=== PATIENT | female | born 1960 | race Caucasian/White ===

== ENCOUNTER 2020-02-27 21:10 | Inpatient (IN) | payer OTHER ==
[~2020-02-27] VITALS: Ht 170.2 cm; Wt 71.2 kg
[~2020-02-27 21:10] MED LIST: ASPI-496 PO; CA C1TAB64 PO; CHOL5000 PO; CYAN3000 PO; LISI-170 PO
[2020-02-27] MEDS ORDERED: ONDANSETRON 2MG/ML, 2ML ONE (21:47)
[2020-02-27 21:57] LABS: BASOPHILS # (AUTO) 0.09 x10^3/uL (0-0.1); BASOPHILS % (AUTO) 1 % (0-1); EOSINOPHILS # (AUTO) 0.18 x10^3/uL (0-0.4); EOSINOPHILS % (AUTO) 1 % (1-7); LYMPHOCYTES # (AUTO) 3.59 x10^3/uL (1-3.4); LYMPHOCYTES % (AUTO) 27 % (22-44); MD NO; MEAN CORPUSCULAR HEMOGLOBIN 26.7 pg (27.0-34.8); MEAN CORPUSCULAR HGB CONC 32.6 g/dL (32.4-35.8); MEAN CORPUSCULAR VOLUME 82.1 fL (80-100); MEAN PLATELET VOLUME 8.1 fL (7.4-10.4); MONOCYTES # (AUTO) 0.87 x10^3/uL (0.2-0.8); MONOCYTES % (AUTO) 7 % (2-9); NEUTROPHILS # (AUTO) 8.57 x10^3/uL (1.8-6.8); NEUTROPHILS % (AUTO) 65 % (42-75); PLATELET COUNT 395 x10^3/uL (130-400); RED CELL DISTRIBUTION WIDTH 15.3 % (9.6-15.2)
--- NOTE | 2020-02-27 21:58 | NUR ---
MONITORS APPLIED, SIDERAIL SUP X2, IV SITE STARTED, LABS DRAW AND SENT, IV FLUIDS INFUSING, PT MEDICATED PER JAN, CALL LIGHT WITHIN REACH
[2020-02-27] MEDS ORDERED: ONDANSETRON 2MG/ML, 2ML IVPush ONE (22:00)
[2020-02-27] MEDS ORDERED: SODIUM CHLORIDE 0.9% 1,000ML IVBOLUS ONE (22:00)
[2020-02-27 22:03] LABS: ALANINE AMINOTRANSFERASE 23 U/L (12-78); ALBUMIN 3.6 g/dL (3.4-5.0); ANION GAP 10 mmol/L (5-15); CALCIUM 10.6 mg/dL (8.5-10.1); CHLORIDE 102 mmol/L (98-107); CREATININE 0.91 mg/dL (0.55-1.02)
[2020-02-27] MEDS ORDERED: ONDA4TAB7 PO (22:04)
[2020-02-27] MEDS ORDERED: CIPR500T3 PO (22:04)
[2020-02-27 22:08] LABS: ALKALINE PHOSPHATASE 202 U/L (45-117); BILIRUBIN,TOTAL 0.5 mg/dL (0.2-1.0); TOTAL PROTEIN 8.7 g/dL (6.4-8.2); TROPONIN I < 0.015 ng/mL (0.000-0.045)
[2020-02-27] MEDS ORDERED: MORPHINE SULFATE 4 MG/ML, 1ML ONE (22:43)
--- NOTE | 2020-02-27 22:48 | NUR ---
PT C/O ABD PAIN, ERP UPDATED, ORDER RECEIVED AND PT MEDICATED PER MAR
[2020-02-27] MEDS ORDERED: MORPHINE SULFATE 4 MG/ML, 1ML IVPush PRN (23:00)
[2020-02-27] MEDS ORDERED: PROMETHAZINE 25 MG/ML, 1ML ONE (23:19)
--- NOTE | 2020-02-27 23:23 | NUR ---
PT MEDICATED PER MAR. PT TO CT
[2020-02-27] MEDS ORDERED: PROMETHAZINE 25 MG/ML, 1ML IM ONE (23:30)
[2020-02-27] MEDS ORDERED: OMNIPAQUE 350 MG/ML, 100ML BOTTLE ONE (23:36)
--- NOTE | 2020-02-28 00:13 | NUR ---
PT UP TO RR WITH STANDBY ASSIST
[2020-02-28] MEDS ORDERED: SODIUM CHLORIDE 0.9% 1,000ML IVBOLUS ONE (00:30)
--- NOTE | 2020-02-28 01:06 | NUR ---
BEAD MAKER: NO COVID TEST NEEDED PER DR. PRIEST(ADMITTING).
[2020-02-28 01:26] VITALS: BP 151/93
[2020-02-28] MEDS ORDERED: ACETAMINOPHEN 325 MG TABLET PO PRN (01:30)
[2020-02-28] MEDS: SODIUM CHLORIDE 0.9% 1,000 ML IV SCH ×2 (01:54→09:38)
[2020-02-28] MEDS: ONDANSETRON 2MG/ML, 2ML IVPush PRN ×3 (06:30→23:59)
[2020-02-28 07:50] VITALS: BP 152/91
[2020-02-28] MEDS: METOCLOPRAMIDE 5 MG/ML, 2ML IVPush PRN (11:44)
[2020-02-28] MEDS ORDERED: POTASSIUM CHLORIDE 40 MEQ in SODIUM CHLORIDE 0.9% 500 ML IV ONE (13:31)
[2020-02-28 15:47] VITALS: BP 133/84
[2020-02-28 17:00] VITALS: BP 146/79
[2020-02-28] MEDS: metFORMIN 500 MG TABLET PO SCH (17:11)
[2020-02-28 19:07] VITALS: BP 140/77
[2020-02-28] MEDS: FAMOTIDINE 20 MG/2 ML IVPush SCH (20:09)
[2020-02-29 00:51] VITALS: BP 131/91
[2020-02-29] MEDS ORDERED: SODIUM CHLORIDE 0.9% 1,000 ML IV SCH (01:15)
[2020-02-29 05:38] LABS: BASOPHILS # (AUTO) 0.04 x10^3/uL (0-0.1); BASOPHILS % (AUTO) 1 % (0-1); EOSINOPHILS # (AUTO) 0.15 x10^3/uL (0-0.4); EOSINOPHILS % (AUTO) 2 % (1-7); LYMPHOCYTES # (AUTO) 3.22 x10^3/uL (1-3.4); LYMPHOCYTES % (AUTO) 35 % (22-44); MD NO; MEAN CORPUSCULAR HEMOGLOBIN 27.2 pg (27.0-34.8); MEAN CORPUSCULAR HGB CONC 32.8 g/dL (32.4-35.8); MEAN CORPUSCULAR VOLUME 82.9 fL (80-100); MEAN PLATELET VOLUME 7.9 fL (7.4-10.4); MONOCYTES # (AUTO) 0.68 x10^3/uL (0.2-0.8); MONOCYTES % (AUTO) 7 % (2-9); NEUTROPHILS # (AUTO) 5.18 x10^3/uL (1.8-6.8); NEUTROPHILS % (AUTO) 56 % (42-75); PLATELET COUNT 305 x10^3/uL (130-400); RED BLOOD COUNT 5.45 x10^6/uL (3.82-5.3); RED CELL DISTRIBUTION WIDTH 15.5 % (9.6-15.2)
[2020-02-29 05:49] LABS: ANION GAP 8 mmol/L (5-15); CALCIUM 8.9 mg/dL (8.5-10.1); CHLORIDE 108 mmol/L (98-107)
[2020-02-29] MEDS: ONDANSETRON 2MG/ML, 2ML IVPush PRN ×2 (06:52→16:20)
[2020-02-29] MEDS: INSULIN LISPRO 100 UNITS/ML, PEN SQ-INSULIN SCH ×4 (07:00→20:41)
[2020-02-29] MEDS ORDERED: POTASSIUM CHLORIDE 20 MEQ TAB.ER.PRT PO ONE ×2 (07:00→10:00)
[2020-02-29] MEDS: metFORMIN 500 MG TABLET PO SCH ×2 (09:02→16:20)
[2020-02-29] MEDS: FAMOTIDINE 20 MG/2 ML IVPush SCH (09:08)
[2020-02-29] MEDS: METOCLOPRAMIDE 5 MG/ML, 2ML IVPush PRN (09:47)
[2020-02-29] MEDS: PROMETHAZINE 25 MG/ML, 1ML IM PRN ×2 (09:47→17:41)
[2020-02-29 09:48] VITALS: BP 152/82
[2020-02-29 13:35] VITALS: BP 148/91
[2020-02-29] MEDS: LORazepam 2 MG/ML, 1ML IVPush PRN (18:36)
[2020-02-29] MEDS: FAMOTIDINE 20 MG TABLET PO SCH (20:48)
[2020-02-29 20:51] VITALS: BP 155/84
[2020-03-01 04:07] VITALS: BP 152/88
[2020-03-01] MEDS: ONDANSETRON 2MG/ML, 2ML IVPush PRN ×3 (05:47→19:46)
[2020-03-01 06:39] VITALS: BP 146/83
[2020-03-01] MEDS: INSULIN LISPRO 100 UNITS/ML, PEN SQ-INSULIN SCH ×4 (07:00→21:00)
[2020-03-01] MEDS: metFORMIN 500 MG TABLET PO SCH ×2 (07:31→16:48)
[2020-03-01] MEDS: FAMOTIDINE 20 MG TABLET PO SCH ×2 (07:32→21:36)
[2020-03-01 09:09] LABS: ANION GAP 8 mmol/L (5-15); CALCIUM 9.2 mg/dL (8.5-10.1); CHLORIDE 106 mmol/L (98-107); CREATININE 0.71 mg/dL (0.55-1.02)
[2020-03-01] MEDS: LORazepam 2 MG/ML, 1ML IVPush PRN ×2 (10:54→16:48)
[2020-03-01 12:36] VITALS: BP 160/91
[2020-03-01 18:59] VITALS: BP 149/83
[2020-03-01] MEDS: METOCLOPRAMIDE 5 MG/ML, 2ML IVPush SCH (21:36)
[2020-03-02] MEDS: LORazepam 2 MG/ML, 1ML IVPush PRN ×2 (00:05→14:04)
[2020-03-02 00:35] VITALS: BP 143/87
[2020-03-02 05:36] LABS: ANION GAP 9 mmol/L (5-15); CALCIUM 9.5 mg/dL (8.5-10.1); CHLORIDE 106 mmol/L (98-107); CREATININE 0.62 mg/dL (0.55-1.02)
[2020-03-02] MEDS: METOCLOPRAMIDE 5 MG/ML, 2ML IVPush SCH ×4 (06:34→22:01)
[2020-03-02 07:14] VITALS: BP 127/80
[2020-03-02] MEDS: INSULIN LISPRO 100 UNITS/ML, PEN SQ-INSULIN SCH ×4 (07:23→21:00)
[2020-03-02] MEDS ORDERED: POTASSIUM CHLORIDE 40 MEQ in SODIUM CHLORIDE 0.9% 500 ML IV ONE (07:30)
[2020-03-02] MEDS: FAMOTIDINE 20 MG TABLET PO SCH ×2 (09:25→22:01)
[2020-03-02] MEDS: metFORMIN 500 MG TABLET PO SCH ×2 (09:25→18:07)
[2020-03-02 13:45] VITALS: BP 125/71
[2020-03-02 14:43] LABS: ANION GAP 7 mmol/L (5-15); CALCIUM 9.1 mg/dL (8.5-10.1); CHLORIDE 109 mmol/L (98-107)
[2020-03-02] MEDS: ONDANSETRON 2MG/ML, 2ML IVPush PRN ×2 (16:28→22:01)
[2020-03-02] MEDS ORDERED: POTASSIUM CHLORIDE 20 MEQ TAB.ER.PRT PO SCH (17:00)
[2020-03-02 19:26] VITALS: BP 109/67
[2020-03-03 00:33] VITALS: BP 127/72
[2020-03-03 05:06] LABS: CALCIUM 9.2 mg/dL (8.5-10.1); CHLORIDE 109 mmol/L (98-107)
[2020-03-03 05:12] LABS: ALANINE AMINOTRANSFERASE 35 U/L (12-78); ALBUMIN 3.1 g/dL (3.4-5.0); ALKALINE PHOSPHATASE 166 U/L (45-117); ANION GAP 8 mmol/L (5-15); BILIRUBIN,TOTAL 0.6 mg/dL (0.2-1.0); TOTAL PROTEIN 7.5 g/dL (6.4-8.2)
[2020-03-03] MEDS: INSULIN LISPRO 100 UNITS/ML, PEN SQ-INSULIN SCH ×3 (07:00→15:59)
[2020-03-03 07:19] VITALS: BP 121/75
[2020-03-03] MEDS: METOCLOPRAMIDE 5 MG/ML, 2ML IVPush SCH (08:06)
[2020-03-03] MEDS: FAMOTIDINE 20 MG TABLET PO SCH (08:06)
[2020-03-03] MEDS: metFORMIN 500 MG TABLET PO SCH ×2 (08:07→15:59)
[2020-03-03] MEDS ORDERED: POTASSIUM CHLORIDE 20 MEQ TAB.ER.PRT PO SCH (08:30)
[2020-03-03] MEDS: METOCLOPRAMIDE 10MG TABLET PO SCH ×2 (11:14→15:59)
[2020-03-03] MEDS ORDERED: CHLORHEXIDINE 15 ML UDC ONE (12:29)
[2020-03-03] MEDS ORDERED: PHENYLEPHRINE 10 MG/ML ONE (12:57)
[2020-03-03] MEDS ORDERED: FENTANYL PF 100 MCG/2ML ONE (12:57)
[2020-03-03] MEDS ORDERED: PROMETHAZINE 25 MG/ML, 1ML IV PRN (13:00)
[2020-03-03] MEDS ORDERED: HYDROmorphone 2 MG/ML, 1ML IVPush PRN (13:00)
[2020-03-03] MEDS ORDERED: FENTANYL PF 100 MCG/2ML IV PRN (13:00)
[2020-03-03] MEDS ORDERED: MIDAZOLAM 1 MG/ML, 2ML IV PRN (13:00)
[2020-03-03] MEDS ORDERED: LABETALOL 5MG/ML, 20ML IV PRN (13:00)
[2020-03-03] MEDS ORDERED: ALBUTEROL SULFATE 2.5 MG/3 ML NPPB PRN (13:00)
[2020-03-03] MEDS ORDERED: hydrALAzine 20 MG/ML, 1ML IV PRN (13:00)
[2020-03-03] MEDS ORDERED: DEXAMETHASONE 4 MG/ML, 1ML ONE (13:25)
[2020-03-03] MEDS ORDERED: PROPOFOL 10 MG/ML, 20ML ONE (13:25)
[2020-03-03] MEDS ORDERED: ONDANSETRON 2MG/ML, 2ML ONE (13:25)
[2020-03-03] MEDS ORDERED: CEFAZOLIN 1,000 MG ONE (13:25)
[2020-03-03] MEDS ORDERED: ROCURONIUM 10MG/ML,5ML ONE (13:25)
[2020-03-03] MEDS ORDERED: SUCCINYLCHOLINE 20 MG/ML, 10ML ONE (13:25)
[2020-03-03] MEDS ORDERED: FAMO20TA7 PO (15:28)
[2020-03-03] MEDS ORDERED: METF500T PO (15:28)
[2020-03-03] MEDS ORDERED: METO10TA2 PO (15:28)
[2020-03-03] MEDS ORDERED: POTA20TA6 PO (15:28)
[2020-03-03] MEDS ORDERED: GLYB2.5T2 PO (15:28)
== END 2020-03-03 17:40 | disposition home or self-care (01) | DRG 987 ==
LOC: ED 22:08 → EDIP 02-28 00:42 → INTOOBSV 02-28 00:42 → 3N 02-28 01:23 → 3E 02-28 16:46 → OBSVTOIN 02-29 11:50 → 3N 02-29 18:15
PROVIDERS: ADMIT Family Medicine; ATTEND Internal Medicine
PROC: 0BBJ8ZX Excision of Left Lower Lung Lobe, Via Natural or Artificial Opening Endoscopic, Diagnostic (ICD-10-PCS; principal; 2020-03-03 13:00)
DX: E11.43 Type 2 diabetes mellitus with diabetic autonomic (poly)neuropathy (principal); E43 Unspecified severe protein-calorie malnutrition; R91.8 Other nonspecific abnormal finding of lung field; E86.0 Dehydration; E87.6 Hypokalemia; F17.200 Nicotine dependence, unspecified, uncomplicated; R59.1 Generalized enlarged lymph nodes; D75.1 Secondary polycythemia; K31.84 Gastroparesis; E27.8 Other specified disorders of adrenal gland; D72.829 Elevated white blood cell count, unspecified; Z90.49 Acquired absence of other specified parts of digestive tract; Z72.89 Other problems related to lifestyle; Z88.0 Allergy status to penicillin; Z88.2 Allergy status to sulfonamides; Z88.1 Allergy status to other antibiotic agents; Z91.012 Allergy to eggs; I10 Essential (primary) hypertension; Z79.4 Long term (current) use of insulin; Z80.1 Family history of malignant neoplasm of trachea, bronchus and lung; Z82.49 Family history of ischemic heart disease and other diseases of the circulatory system; Z68.24 Body mass index [BMI] 24.0-24.9, adult
CPT/HCPCS: 36415; 96361; 96372; 96374; 99285; J3490; 31628; 31629; 71045; 71260; 74177; 78264; 80048; 80053; 82962; 83036; 83690; 83735; 84100; 84484; 85025; 88172; 88173; 88177; 88305; 93005; G0378; J0690; J1100; J2405; J2550; J2704; J3010; J3480; Q9967; A9541; J0330; J1815; J2060; J2270; J2370; J2765; J7030; J7040; U0001

== ENCOUNTER 2020-03-09 16:20 | Inpatient (IN) | payer OTHER ==
[~2020-03-09] VITALS: Ht 172.7 cm; Wt 76.0 kg
[~2020-03-09 16:20] MED LIST changes: +CIPR500T3 PO; +FAMO20TA7 PO; +GLYB2.5T2 PO; +METF500T PO; +METO10TA2 PO; +ONDA4TAB7 PO; +POTA20TA6 PO
[2020-03-09] MEDS ORDERED: DIPHENHYDRAMINE 50 MG/ML, 1ML ONE (16:54)
[2020-03-09] MEDS ORDERED: PROCHLORPERAZINE 5 MG/ML, 2ML ONE (16:54)
[2020-03-09 17:00] LABS: BASOPHILS # (AUTO) 0.06 x10^3/uL (0-0.1); BASOPHILS % (AUTO) 1 % (0-1); EOSINOPHILS # (AUTO) 0.12 x10^3/uL (0-0.4); EOSINOPHILS % (AUTO) 1 % (1-7); LYMPHOCYTES # (AUTO) 3.41 x10^3/uL (1-3.4); LYMPHOCYTES % (AUTO) 35 % (22-44); MD NO; MEAN CORPUSCULAR HEMOGLOBIN 26.7 pg (27.0-34.8); MEAN CORPUSCULAR HGB CONC 32.7 g/dL (32.4-35.8); MEAN CORPUSCULAR VOLUME 81.9 fL (80-100); MEAN PLATELET VOLUME 8.3 fL (7.4-10.4); MONOCYTES # (AUTO) 0.92 x10^3/uL (0.2-0.8); MONOCYTES % (AUTO) 9 % (2-9); NEUTROPHILS # (AUTO) 5.36 x10^3/uL (1.8-6.8); NEUTROPHILS % (AUTO) 54 % (42-75); PLATELET COUNT 359 x10^3/uL (130-400); RED CELL DISTRIBUTION WIDTH 15.4 % (9.6-15.2)
[2020-03-09] MEDS ORDERED: DIPHENHYDRAMINE 50 MG/ML, 1ML IVPush ONE (17:00)
[2020-03-09] MEDS ORDERED: SODIUM CHLORIDE FLUSH 10ML SYR IVF ONE (17:00)
[2020-03-09] MEDS ORDERED: SODIUM CHLORIDE 0.9% 1,000ML IVBOLUS ONE (17:00)
[2020-03-09] MEDS ORDERED: PROCHLORPERAZINE 5 MG/ML, 2ML IVPush ONE (17:00)
--- NOTE | 2020-03-09 17:05 | NUR ---
ASSISTING PRIMARY. PT MEDICATED PER ERP ORDER, NS BOLUS INFUSING. PT WITH SOME RELIEF OF NAUSEA FOLLOWING MEDICATION. PULSE OX PLACED, SAT READING 86-90%. OXYGEN PLACED AT 2LITERS VIA NC. CALL LIGHT WITHIN REACH, FAMILY AT BS.
[2020-03-09 17:07] LABS: ALANINE AMINOTRANSFERASE 28 U/L (12-78); ALBUMIN 3.5 g/dL (3.4-5.0); ANION GAP 9 mmol/L (5-15); CALCIUM 9.5 mg/dL (8.5-10.1); CHLORIDE 106 mmol/L (98-107)
[2020-03-09 17:10] LABS: ALKALINE PHOSPHATASE 169 U/L (45-117); BILIRUBIN,TOTAL 0.6 mg/dL (0.2-1.0); CREATININE 0.75 mg/dL (0.55-1.02)
[2020-03-09] MEDS ORDERED: POTASSIUM CHLORIDE 40 MEQ in SODIUM CHLORIDE 0.9% 500 ML IV ONE (18:00)
[2020-03-09] MEDS ORDERED: PROM25SU35 PR (18:25)
[2020-03-09] MEDS ORDERED: morphine SULFATE 10 MG/ML, 1ML IVPush PRN (18:30)
[2020-03-09] MEDS ORDERED: PROMETHAZINE 25 MG/ML, 1ML IM PRN (18:30)
[2020-03-09] MEDS ORDERED: BISACODYL 10 MG SUPP PR PRN (18:30)
[2020-03-09] MEDS ORDERED: METOCLOPRAMIDE 5 MG/ML, 2ML IVPush PRN (18:30)
[2020-03-09] MEDS ORDERED: hydrALAzine 20 MG/ML, 1ML IVPush PRN (18:30)
[2020-03-09] MEDS ORDERED: DEXTROSE 4 GM TAB.CHEW PO PRN (18:30)
[2020-03-09] MEDS ORDERED: ACETAMINOPHEN 325 MG TABLET PO PRN (18:30)
[2020-03-09] MEDS ORDERED: POLYETHYLENE GLYCOL 17 GM PACKET PO PRN (18:30)
[2020-03-09] MEDS ORDERED: GLUCAGON 1 MG IM PRN (18:30)
[2020-03-09] MEDS ORDERED: DEXTROSE 50%, 50ML SYRINGE IVPush PRN (18:30)
--- NOTE | 2020-03-09 18:48 | NUR ---
REPORT FROM NARGIS CHEN. ASSUMING CARE OF PT
--- NOTE | 2020-03-09 19:30 | NUR ---
REPORT CALLED TO FLOOR RN ALL QUESTIONS ADDRESSED, PT READY FOR TRANSPORT
[2020-03-09 19:46] LABS: ACETONE, SERUM Trace (Negative)
[2020-03-09 19:56] VITALS: BP 146/82
[2020-03-09] MEDS: INSULIN LISPRO 100 UNITS/ML, PEN SQ-INSULIN SCH (21:00)
[2020-03-09] MEDS: NICOTINE 14MG/24 HR PATCH.TD24 TD SCH (21:00)
[2020-03-09] MEDS: NS + 20MEQ KCL 1,000 ML IV SCH ×2 (21:44→23:03)
[2020-03-09] MEDS: SODIUM CHLORIDE FLUSH 10ML SYR IVF SCH (21:44)
[2020-03-09] MEDS: FAMOTIDINE 20 MG/2 ML IVPush SCH (21:44)
[2020-03-09] MEDS: HEPARIN 5,000 UNITS/ML, 1ML SQ SCH (21:46)
[2020-03-09] MEDS: ONDANSETRON 2MG/ML, 2ML IVPush PRN (23:33)
[2020-03-09 23:56] LABS: MICROSCOPIC AUTO
[2020-03-10 00:02] LABS: CULTURE INDICATED? YES
[2020-03-10 00:06] VITALS: BP 117/69
[2020-03-10] MEDS: HEPARIN 5,000 UNITS/ML, 1ML SQ SCH ×3 (05:30→21:21)
[2020-03-10 06:49] LABS: BASOPHILS # (AUTO) 0.05 x10^3/uL (0-0.1); BASOPHILS % (AUTO) 1 % (0-1); EOSINOPHILS # (AUTO) 0.17 x10^3/uL (0-0.4); EOSINOPHILS % (AUTO) 2 % (1-7); LYMPHOCYTES % (AUTO) 34 % (22-44); MD NO; MEAN CORPUSCULAR HGB CONC 32.5 g/dL (32.4-35.8); MEAN CORPUSCULAR VOLUME 82.8 fL (80-100); MEAN PLATELET VOLUME 8.1 fL (7.4-10.4); MONOCYTES % (AUTO) 10 % (2-9); NEUTROPHILS # (AUTO) 4.42 x10^3/uL (1.8-6.8); NEUTROPHILS % (AUTO) 54 % (42-75); PLATELET COUNT 283 x10^3/uL (130-400); RED BLOOD COUNT 5.26 x10^6/uL (3.82-5.3); RED CELL DISTRIBUTION WIDTH 15.4 % (9.6-15.2)
[2020-03-10 06:58] LABS: ANION GAP 6 mmol/L (5-15); CALCIUM 8.6 mg/dL (8.5-10.1); CHLORIDE 115 mmol/L (98-107)
[2020-03-10 07:00] LABS: CREATININE 0.54 mg/dL (0.55-1.02)
[2020-03-10] MEDS: INSULIN LISPRO 100 UNITS/ML, PEN SQ-INSULIN SCH ×4 (07:00→21:00)
[2020-03-10 07:24] VITALS: BP 123/73
[2020-03-10] MEDS: SENNA/DOCUSATE TABLET PO SCH (09:28)
[2020-03-10] MEDS: ONDANSETRON 2MG/ML, 2ML IVPush PRN (09:28)
[2020-03-10] MEDS: FAMOTIDINE 20 MG/2 ML IVPush SCH ×2 (09:28→21:21)
[2020-03-10] MEDS: NS + 20MEQ KCL 1,000 ML IV SCH ×2 (09:29→19:29)
[2020-03-10] MEDS: SODIUM CHLORIDE FLUSH 10ML SYR IVF SCH ×2 (09:29→21:22)
[2020-03-10] MEDS ORDERED: METOCLOPRAMIDE 5 MG/ML, 2ML IVPush SCH (11:30)
[2020-03-10 12:04] VITALS: BP 131/80
[2020-03-10] MEDS: METOCLOPRAMIDE 5 MG/ML, 2ML IVPush SCH (19:30)
[2020-03-10 19:39] VITALS: BP 160/93
[2020-03-10] MEDS: NICOTINE 14MG/24 HR PATCH.TD24 TD SCH (21:00)
[2020-03-11 01:18] VITALS: BP 161/89
[2020-03-11] MEDS: METOCLOPRAMIDE 5 MG/ML, 2ML IVPush SCH ×2 (03:30→11:34)
[2020-03-11] MEDS: ONDANSETRON 2MG/ML, 2ML IVPush PRN ×2 (03:46→09:57)
[2020-03-11] MEDS: HEPARIN 5,000 UNITS/ML, 1ML SQ SCH ×3 (05:03→22:03)
[2020-03-11] MEDS: NS + 20MEQ KCL 1,000 ML IV SCH (05:03)
[2020-03-11 06:29] VITALS: BP 151/83
[2020-03-11] MEDS: INSULIN LISPRO 100 UNITS/ML, PEN SQ-INSULIN SCH ×4 (07:00→21:00)
[2020-03-11] MEDS: FAMOTIDINE 20 MG/2 ML IVPush SCH (09:09)
[2020-03-11] MEDS: SENNA/DOCUSATE TABLET PO SCH (09:09)
[2020-03-11] MEDS: SODIUM CHLORIDE FLUSH 10ML SYR IVF SCH ×2 (09:09→21:00)
[2020-03-11] MEDS: POLYETHYLENE GLYCOL 17 GM PACKET PO SCH (10:30)
[2020-03-11 12:22] VITALS: BP 156/79
[2020-03-11] MEDS ORDERED: ONDANSETRON 4 MG TABLET PO PRN (15:30)
[2020-03-11] MEDS: METOCLOPRAMIDE 10MG TABLET PO SCH ×2 (16:26→22:03)
[2020-03-11 20:00] VITALS: BP 132/80
[2020-03-11] MEDS: NICOTINE 14MG/24 HR PATCH.TD24 TD SCH (21:00)
[2020-03-12 02:19] VITALS: BP 147/82
[2020-03-12] MEDS: HEPARIN 5,000 UNITS/ML, 1ML SQ SCH ×2 (05:00→13:36)
[2020-03-12] MEDS: METOCLOPRAMIDE 10MG TABLET PO SCH ×4 (06:15→21:56)
[2020-03-12 07:45] VITALS: BP 149/89
[2020-03-12] MEDS: POLYETHYLENE GLYCOL 17 GM PACKET PO SCH (08:11)
[2020-03-12] MEDS: SODIUM CHLORIDE FLUSH 10ML SYR IVF SCH ×2 (08:16→19:41)
[2020-03-12] MEDS ORDERED: FAMOTIDINE 20 MG/2 ML IVPush SCH (09:00)
[2020-03-12] MEDS ORDERED: SENNA/DOCUSATE TABLET PO SCH (09:00)
[2020-03-12] MEDS ORDERED: GADOTERATE 7.5 MMOL/15 ML SYR ONE (09:57)
[2020-03-12] MEDS: INSULIN LISPRO 100 UNITS/ML, PEN SQ-INSULIN SCH ×4 (10:22→21:57)
[2020-03-12] MEDS ORDERED: SENN-193 PO (11:21)
[2020-03-12] MEDS ORDERED: METO10TA2 PO (11:21)
[2020-03-12] MEDS ORDERED: ONDA-89 PO (11:21)
[2020-03-12] MEDS ORDERED: FAMO-79 PO (11:21)
[2020-03-12] MEDS: DEXAMETHASONE 4 MG/ML, 1ML IVPush SCH ×2 (13:36→19:40)
[2020-03-12 16:45] VITALS: BP 132/81
[2020-03-12 19:05] VITALS: BP 138/79
[2020-03-12] MEDS: NICOTINE 14MG/24 HR PATCH.TD24 TD SCH (21:57)
[2020-03-13] MEDS ORDERED: FAMOTIDINE 20 MG TABLET PO SCH (09:00)
== END 2020-03-13 00:30 | disposition short-term general hospital (02) | DRG 73 ==
LOC: ED 16:49 → EDIP 17:52 → 3N 19:44 → 3WST 23:19
PROVIDERS: ADMIT Internal Medicine; ATTEND Hospitalist
DX: E11.43 Type 2 diabetes mellitus with diabetic autonomic (poly)neuropathy (principal); E43 Unspecified severe protein-calorie malnutrition; D25.9 Leiomyoma of uterus, unspecified; K31.84 Gastroparesis; Z71.6 Tobacco abuse counseling; E27.8 Other specified disorders of adrenal gland; E87.6 Hypokalemia; G93.9 Disorder of brain, unspecified; K57.30 Diverticulosis of large intestine without perforation or abscess without bleeding; K59.00 Constipation, unspecified; Z72.0 Tobacco use; Z79.4 Long term (current) use of insulin; Z80.1 Family history of malignant neoplasm of trachea, bronchus and lung; Z83.3 Family history of diabetes mellitus; Z85.118 Personal history of other malignant neoplasm of bronchus and lung; Z91.81 History of falling; Z88.8 Allergy status to other drugs, medicaments and biological substances; Z88.0 Allergy status to penicillin; Z91.012 Allergy to eggs; Z90.49 Acquired absence of other specified parts of digestive tract; Z68.25 Body mass index [BMI] 25.0-25.9, adult; Z88.2 Allergy status to sulfonamides
CPT/HCPCS: 36415; 74018; 96361; 96374; 99285; J3490; 70553; 80048; 80053; 81001; 82010; 82962; 83690; 83735; 85025; 87086; 93005; G0378; J1100; J1644; J2405; J3480; Q0162; A9575; J0780; J1200; J1815; J2765; J7030; J7040

== ENCOUNTER 2020-03-17 16:05 | Emergency (ER) | payer OTHER ==
[~2020-03-17] VITALS: Ht 172.7 cm; Wt 71.1 kg
[~2020-03-17 16:05] MED LIST changes: +FAMO-79 PO; +ONDA-89 PO; +PROM25SU35 PR; +SENN-193 PO
[2020-03-17] MEDS ORDERED: ONDANSETRON 2MG/ML, 2ML ONE (16:55)
--- NOTE | 2020-03-17 16:59 | NUR ---
PIV PLACED. LABS DRAWN. IVF RUNNING. XRAY COMPLETE. PT BACK FROM CT.
[2020-03-17] MEDS ORDERED: ONDANSETRON 2MG/ML, 2ML IVPush ONE (17:00)
[2020-03-17] MEDS ORDERED: SODIUM CHLORIDE 0.9% 1,000ML IVBOLUS ONE (17:00)
[2020-03-17] MEDS ORDERED: SODIUM CHLORIDE FLUSH 10ML SYR IVF ONE (17:00)
--- NOTE | 2020-03-17 17:03 | NUR ---
MEDS ADMIN PER JAN.
[2020-03-17 17:14] LABS: BASOPHILS # (AUTO) 0.01 x10^3/uL (0-0.1); BASOPHILS % (AUTO) 0 % (0-1); EOSINOPHILS # (AUTO) 0.06 x10^3/uL (0-0.4); EOSINOPHILS % (AUTO) 1 % (1-7); LYMPHOCYTES # (AUTO) 2.73 x10^3/uL (1-3.4); LYMPHOCYTES % (AUTO) 23 % (22-44); MD NO; MEAN CORPUSCULAR HEMOGLOBIN 26.9 pg (27.0-34.8); MEAN CORPUSCULAR HGB CONC 32.2 g/dL (32.4-35.8); MEAN CORPUSCULAR VOLUME 83.3 fL (80-100); MEAN PLATELET VOLUME 8.6 fL (7.4-10.4); MONOCYTES # (AUTO) 0.95 x10^3/uL (0.2-0.8); MONOCYTES % (AUTO) 8 % (2-9); NEUTROPHILS # (AUTO) 7.92 x10^3/uL (1.8-6.8); NEUTROPHILS % (AUTO) 68 % (42-75); PLATELET COUNT 324 x10^3/uL (130-400); RED BLOOD COUNT 5.93 x10^6/uL (3.82-5.3); RED CELL DISTRIBUTION WIDTH 15.8 % (9.6-15.2)
[2020-03-17 17:21] LABS: INTERNATIONAL NORMALIZED RATIO 0.99 (0.93-1.1); PROTHROMBIN TIME 10.5 Seconds (9.6-11.5)
[2020-03-17 17:24] LABS: ALANINE AMINOTRANSFERASE 55 U/L (12-78); ALBUMIN 3.3 g/dL (3.4-5.0); ANION GAP 8 mmol/L (5-15); CALCIUM 9.3 mg/dL (8.5-10.1); CHLORIDE 101 mmol/L (98-107); CREATININE 0.74 mg/dL (0.55-1.02)
[2020-03-17 17:28] LABS: ALKALINE PHOSPHATASE 167 U/L (45-117); BILIRUBIN,TOTAL 0.7 mg/dL (0.2-1.0); TOTAL PROTEIN 7.9 g/dL (6.4-8.2); TROPONIN I < 0.015 ng/mL (0.000-0.045)
[2020-03-17 17:52] LABS: MICROSCOPIC AUTO
[2020-03-17 17:53] LABS: CULTURE INDICATED? NO
--- NOTE | 2020-03-17 17:55 | NUR ---
ALL RESULTS ARE BACK AT THIS TIME. CHART UP FOR RECHECK.
[2020-03-17] MEDS ORDERED: PROMETHAZINE 25 MG/ML, 1ML IM ONE ×2 (18:00)
[2020-03-17] MEDS ORDERED: POTASSIUM CHLORIDE 20 MEQ TAB.ER.PRT PO ONE (18:00)
[2020-03-17] MEDS ORDERED: POTASSIUM CHLORIDE 20 MEQ TAB.ER.PRT ONE (18:10)
[2020-03-17] MEDS ORDERED: PROMETHAZINE 25 MG/ML, 1ML ONE (18:10)
[2020-03-17 18:58] VITALS: BP 153/78
--- NOTE | 2020-03-17 18:58 | NUR ---
PT TOLERATED PO POTASSIUM FOR ABOUT 20 MINUTES. PT STATES READY FOR DC.
== END 2020-03-17 19:10 | disposition home or self-care (01) ==
LOC: ED 17:04
DX: R11.2 Nausea with vomiting, unspecified (principal); R42 Dizziness and giddiness; E11.9 Type 2 diabetes mellitus without complications; E87.6 Hypokalemia; R94.31 Abnormal electrocardiogram [ECG] [EKG]; R10.9 Unspecified abdominal pain; Z90.89 Acquired absence of other organs; Z90.49 Acquired absence of other specified parts of digestive tract
CPT/HCPCS: 36415; 70450; 71045; 80053; 81001; 84484; 85025; 85610; 93005; 96361; 96372; 96374; 99285; J2405; J2550; J7030

== ENCOUNTER 2020-03-27 07:57 | Outpatient (CLI) | payer OTHER | END 2020-03-27 23:59 | disposition home or self-care (01) | LOC: ROC 07:57 | PROVIDERS: ATTEND Radiology Radiation Oncology | DX: C34.32 Malignant neoplasm of lower lobe, left bronchus or lung (principal); R42 Dizziness and giddiness; E87.6 Hypokalemia; E11.43 Type 2 diabetes mellitus with diabetic autonomic (poly)neuropathy; Z79.4 Long term (current) use of insulin; Z87.891 Personal history of nicotine dependence | CPT/HCPCS: 99214; G0463 ==

== ENCOUNTER → 2020-03-29 | Outpatient (CLI) | payer OTHER ==
[~2020-03-29] MED LIST changes: +GADOTERATE 10 MMOL/20 ML SYR ONE
== END | disposition home or self-care (01) ==
LOC: CFH 12:08
PROVIDERS: ATTEND Radiology Radiation Oncology
DX: C79.31 Secondary malignant neoplasm of brain (principal); C34.32 Malignant neoplasm of lower lobe, left bronchus or lung
CPT/HCPCS: 70553; A9575

== ENCOUNTER 2020-04-05 09:32 | Outpatient (CLI) | payer OTHER ==
[~2020-04-05 09:32] MED LIST changes: -GADOTERATE 10 MMOL/20 ML SYR ONE
== END 2020-04-05 23:59 | disposition home or self-care (01) ==
LOC: PETCFH 09:32
PROVIDERS: ATTEND Internal Medicine
DX: C34.32 Malignant neoplasm of lower lobe, left bronchus or lung (principal); R91.8 Other nonspecific abnormal finding of lung field
CPT/HCPCS: 78815; A9552

== ENCOUNTER 2020-04-19 07:30 | Outpatient (CLI) | payer OTHER | END 2020-04-19 23:59 | disposition home or self-care (01) | LOC: ROC 07:30 | PROVIDERS: ATTEND Radiology Radiation Oncology | DX: C34.32 Malignant neoplasm of lower lobe, left bronchus or lung (principal); C79.31 Secondary malignant neoplasm of brain; M19.90 Unspecified osteoarthritis, unspecified site; R42 Dizziness and giddiness; E11.43 Type 2 diabetes mellitus with diabetic autonomic (poly)neuropathy; Z79.82 Long term (current) use of aspirin; Z79.4 Long term (current) use of insulin; Z79.899 Other long term (current) drug therapy; Z98.890 Other specified postprocedural states; Z87.891 Personal history of nicotine dependence | CPT/HCPCS: 99213; G0463 ==

== ENCOUNTER 2020-04-26 14:27 | Day surgery (SDC) | payer OTHER ==
[~2020-04-26] VITALS: Ht 172.7 cm; Wt 73.6 kg
[2020-04-26] MEDS ORDERED: PROM25VI PO (14:58)
[2020-04-26] MEDS ORDERED: LACTATED RINGERS 1,000 ML IV SCH (15:04)
[2020-04-26 15:07] VITALS: BP 131/90
[2020-04-26 15:14] VITALS: BP 131/90
[2020-04-26] MEDS ORDERED: FAMO-79 PO (15:20)
[2020-04-26] MEDS ORDERED: ONDA8TAB9 PO (15:20)
[2020-04-26] MEDS ORDERED: [UNRECOGNIZED DRUG - OTHER] (15:28)
[2020-04-26] MEDS ORDERED: CHLORHEXIDINE 15 ML UDC MM ONE (15:30)
[2020-04-26] MEDS ORDERED: FENTANYL PF 100 MCG/2ML ONE (17:18)
[2020-04-26] MEDS ORDERED: MIDAZOLAM 1 MG/ML, 2ML ONE (17:19)
[2020-04-26] MEDS ORDERED: HEPARIN 1,000 UNITS/ML, 10ML ONE (17:20)
[2020-04-26] MEDS ORDERED: BUPIVACAINE/PF-EPI 0.5% 1:200K ONE (17:20)
[2020-04-26] MEDS ORDERED: SCOPOLAMINE 1MG PATCH TD STA (17:25)
[2020-04-26] MEDS ORDERED: SCOPOLAMINE 1MG PATCH TD ONE ×2 (17:26→18:00)
[2020-04-26] MEDS ORDERED: ONDANSETRON 2MG/ML, 2ML ONE (17:36)
[2020-04-26] MEDS ORDERED: PROPOFOL 10 MG/ML, 20ML ONE (17:36)
[2020-04-26] MEDS ORDERED: DEXAMETHASONE 4 MG/ML, 1ML ONE (17:36)
[2020-04-26] MEDS ORDERED: CLINDAMYCIN 150 MG/ML, 6ML ONE (17:49)
[2020-04-26] MEDS ORDERED: PROMETHAZINE 25 MG/ML, 1ML IVPush PRN (18:30)
[2020-04-26] MEDS ORDERED: OXYcodone 5 MG/5 ML ORAL.SOL UDC PO PRN (18:30)
[2020-04-26] MEDS ORDERED: FENTANYL PF 100 MCG/2ML IV PRN (18:30)
[2020-04-26] MEDS ORDERED: LABETALOL 5MG/ML, 20ML IV PRN (18:30)
[2020-04-26] MEDS ORDERED: HYDROmorphone 1 MG/ML, 1ML INJ IVPush PRN (18:30)
[2020-04-26] MEDS ORDERED: MEPERIDINE/PF 25MG/0.5ML IVPush PRN (18:30)
[2020-04-26] MEDS ORDERED: hydrALAzine 20 MG/ML, 1ML IV PRN (18:30)
[2020-04-26] MEDS ORDERED: ONDANSETRON 2MG/ML, 2ML IVPush PRN (18:30)
[2020-04-26] MEDS ORDERED: PROMETHAZINE 25 MG/ML, 1ML ONE (19:12)
== END 2020-04-26 20:25 | disposition home or self-care (01) ==
LOC: OR 14:27 → 3N 19:50 → OR 20:25
PROVIDERS: ATTEND Surgery
DX: C34.82 Malignant neoplasm of overlapping sites of left bronchus and lung (principal); Z11.59 Encounter for screening for other viral diseases; C79.31 Secondary malignant neoplasm of brain; E11.9 Type 2 diabetes mellitus without complications; M19.90 Unspecified osteoarthritis, unspecified site; Z79.82 Long term (current) use of aspirin; Z79.899 Other long term (current) drug therapy; Z87.891 Personal history of nicotine dependence; Z88.0 Allergy status to penicillin; Z88.2 Allergy status to sulfonamides; Z91.012 Allergy to eggs; Z88.8 Allergy status to other drugs, medicaments and biological substances; Z98.890 Other specified postprocedural states; Z80.9 Family history of malignant neoplasm, unspecified; Z82.49 Family history of ischemic heart disease and other diseases of the circulatory system
CPT/HCPCS: 36561; 71045; 77001; 87635; C1788; J1100; J1644; J2250; J2405; J2550; J2704; J3010; J7120; G0378

== ENCOUNTER 2020-06-19 09:34 | Outpatient (CLI) | payer OTHER ==
[~2020-06-19 09:34] MED LIST changes: +ONDA8TAB9 PO; +PROM25VI PO; +[UNRECOGNIZED DRUG - OTHER]
[2020-06-19] MEDS ORDERED: GADOTERATE 10 MMOL/20 ML SYR ONE (10:09)
== END 2020-06-19 23:59 | disposition home or self-care (01) ==
LOC: CFH 09:34 → RAD 23:59
PROVIDERS: ATTEND Radiology Radiation Oncology
DX: C79.31 Secondary malignant neoplasm of brain (principal)
CPT/HCPCS: 70553; A9575

== ENCOUNTER 2020-08-24 08:00 | Outpatient (CLI) | payer OTHER | END 2020-08-24 23:59 | disposition home or self-care (01) | LOC: ROC 08:00 | PROVIDERS: ATTEND Radiology Radiation Oncology | DX: C34.32 Malignant neoplasm of lower lobe, left bronchus or lung (principal) | CPT/HCPCS: G0463-95 ==

== ENCOUNTER → 2020-08-31 | Outpatient (CLI) | payer OTHER ==
[~2020-08-31] MED LIST changes: +OMNIPAQUE 350 MG/ML, 100ML BOTTLE ONE
== END | disposition home or self-care (01) ==
LOC: CFH 08:06
PROVIDERS: ATTEND Specialist
DX: C34.32 Malignant neoplasm of lower lobe, left bronchus or lung (principal); K76.0 Fatty (change of) liver, not elsewhere classified; I31.3 Pericardial effusion (noninflammatory); J90 Pleural effusion, not elsewhere classified; R91.8 Other nonspecific abnormal finding of lung field; R91.1 Solitary pulmonary nodule; Z90.49 Acquired absence of other specified parts of digestive tract
CPT/HCPCS: 71260; 74160; Q9967

== ENCOUNTER → 2020-10-11 | Outpatient (CLI) | payer OTHER ==
[~2020-10-11] MED LIST changes: -OMNIPAQUE 350 MG/ML, 100ML BOTTLE ONE
== END | disposition home or self-care (01) ==
LOC: ROC 08:16
PROVIDERS: ATTEND Radiology Radiation Oncology
DX: Z08 Encounter for follow-up examination after completed treatment for malignant neoplasm (principal); Z85.118 Personal history of other malignant neoplasm of bronchus and lung
CPT/HCPCS: 99213; G0463

== ENCOUNTER → 2020-10-18 | Outpatient (CLI) | payer OTHER ==
[~2020-10-18] MED LIST changes: +GADOTERATE 10 MMOL/20 ML SYR ONE
== END | disposition home or self-care (01) ==
LOC: CFH 11:55
PROVIDERS: ATTEND Radiology Radiation Oncology
DX: C79.31 Secondary malignant neoplasm of brain (principal); G93.89 Other specified disorders of brain
CPT/HCPCS: 70553; A9575

== ENCOUNTER → 2020-11-14 | Outpatient (CLI) | payer OTHER ==
[~2020-11-14] MED LIST changes: -GADOTERATE 10 MMOL/20 ML SYR ONE; +OMNIPAQUE 350 MG/ML, 100ML BOTTLE ONE
== END | disposition home or self-care (01) ==
LOC: CFH 09:43
PROVIDERS: ATTEND Specialist
DX: C34.32 Malignant neoplasm of lower lobe, left bronchus or lung (principal); J84.10 Pulmonary fibrosis, unspecified; R91.1 Solitary pulmonary nodule; R91.8 Other nonspecific abnormal finding of lung field; J90 Pleural effusion, not elsewhere classified; K76.0 Fatty (change of) liver, not elsewhere classified; N28.1 Cyst of kidney, acquired; E27.8 Other specified disorders of adrenal gland
CPT/HCPCS: 71260; 74160; Q9967

== ENCOUNTER 2020-12-05 06:05 | Day surgery (SDC) | payer OTHER ==
[~2020-12-05] VITALS: Ht 170.2 cm; Wt 83.5 kg
[~2020-12-05 06:05] MED LIST changes: -OMNIPAQUE 350 MG/ML, 100ML BOTTLE ONE; -[UNRECOGNIZED DRUG - OTHER]; +[UNRECOGNIZED DRUG - OTHER] PO
[2020-12-05] MEDS ORDERED: PROM25TA10 PO (07:20)
[2020-12-05] MEDS ORDERED: ATOR40TA78 PO (07:20)
[2020-12-05] MEDS ORDERED: ONDA8TAB16 SL (07:20)
[2020-12-05] MEDS ORDERED: FAMO-79 PO (07:20)
[2020-12-05] MEDS ORDERED: SCOP1PAT11 TD (07:20)
[2020-12-05 07:23] VITALS: BP 104/70
[2020-12-05] MEDS ORDERED: SODIUM CHLORIDE 0.9% 1,000 ML IV SCH (07:30)
[2020-12-05] MEDS ORDERED: FENTANYL PF 100 MCG/2ML ONE (08:06)
[2020-12-05] MEDS ORDERED: MIDAZOLAM 1 MG/ML, 5ML ONE ×2 (08:07)
[2020-12-05] MEDS ORDERED: FLUMAZENIL 0.1 MG/1 ML, 5ML ONE (08:07)
[2020-12-05] MEDS ORDERED: NALOXONE 1 MG/ML, 2ML ONE (08:07)
== END 2020-12-05 09:30 | disposition home or self-care (01) ==
LOC: OUT 06:05
PROVIDERS: ATTEND Specialist
DX: E27.8 Other specified disorders of adrenal gland (principal); C34.32 Malignant neoplasm of lower lobe, left bronchus or lung; C79.31 Secondary malignant neoplasm of brain; E11.9 Type 2 diabetes mellitus without complications; Z79.899 Other long term (current) drug therapy; Z87.891 Personal history of nicotine dependence; Z88.0 Allergy status to penicillin; Z88.2 Allergy status to sulfonamides; Z88.6 Allergy status to analgesic agent; Z91.012 Allergy to eggs; Z80.1 Family history of malignant neoplasm of trachea, bronchus and lung
CPT/HCPCS: 49180; 77012; 99156; 99157; J2250; J3010; J7030; J2310

== ENCOUNTER → 2021-01-10 | Outpatient (CLI) | payer OTHER ==
[~2021-01-10] MED LIST changes: +ATOR40TA78 PO; -CIPR500T3 PO; +CIPR500T4 PO; +GADOTERATE 10 MMOL/20 ML SYR ONE; +ONDA8TAB16 SL; +PROM25TA10 PO; +SCOP1PAT11 TD
== END | disposition home or self-care (01) ==
LOC: CFH 11:48
PROVIDERS: ATTEND Radiology Radiation Oncology
DX: C79.31 Secondary malignant neoplasm of brain (principal); J34.89 Other specified disorders of nose and nasal sinuses
CPT/HCPCS: 70553; A9575

== ENCOUNTER → 2021-01-17 | Outpatient (CLI) | payer OTHER ==
[~2021-01-17] MED LIST changes: -GADOTERATE 10 MMOL/20 ML SYR ONE
== END | disposition home or self-care (01) ==
LOC: ROC 07:18
PROVIDERS: ATTEND Radiology Radiation Oncology
DX: Z08 Encounter for follow-up examination after completed treatment for malignant neoplasm (principal); Z85.118 Personal history of other malignant neoplasm of bronchus and lung; Z85.841 Personal history of malignant neoplasm of brain; E11.9 Type 2 diabetes mellitus without complications; Z79.899 Other long term (current) drug therapy; Z87.891 Personal history of nicotine dependence
CPT/HCPCS: 99213; G0463

== ENCOUNTER → 2021-03-28 | Outpatient (CLI) | payer OTHER ==
[~2021-03-28] MED LIST changes: +GADOTERATE 10 MMOL/20ML SYR ONE
== END | disposition home or self-care (01) ==
LOC: CFH 10:53
PROVIDERS: ATTEND Radiology Radiation Oncology
DX: C79.31 Secondary malignant neoplasm of brain (principal); C34.90 Malignant neoplasm of unspecified part of unspecified bronchus or lung
CPT/HCPCS: 70553; A9575

== ENCOUNTER → 2021-04-04 | Outpatient (CLI) | payer OTHER ==
[~2021-04-04] MED LIST changes: -GADOTERATE 10 MMOL/20ML SYR ONE
== END | disposition home or self-care (01) ==
LOC: ROC 07:06
PROVIDERS: ATTEND Radiology Radiation Oncology
DX: C79.31 Secondary malignant neoplasm of brain (principal); Z85.118 Personal history of other malignant neoplasm of bronchus and lung
CPT/HCPCS: 99213; G0463

== ENCOUNTER → 2021-04-13 | Outpatient (CLI) | payer OTHER ==
[~2021-04-13] MED LIST changes: +OMNIPAQUE 350 MG/ML, 100ML BOTTLE ONE
== END | disposition home or self-care (01) ==
LOC: CFH 09:41
PROVIDERS: ATTEND Specialist
DX: C34.32 Malignant neoplasm of lower lobe, left bronchus or lung (principal); R16.0 Hepatomegaly, not elsewhere classified; K76.0 Fatty (change of) liver, not elsewhere classified; N28.89 Other specified disorders of kidney and ureter; R91.8 Other nonspecific abnormal finding of lung field
CPT/HCPCS: 71260; 74177; Q9967

== ENCOUNTER → 2021-05-30 | Outpatient (CLI) | payer OTHER ==
[~2021-05-30] MED LIST changes: +GADOTERATE 10 MMOL/20 ML VIAL ONE; -OMNIPAQUE 350 MG/ML, 100ML BOTTLE ONE
== END | disposition home or self-care (01) ==
LOC: CFH 09:04
PROVIDERS: ATTEND Radiology Radiation Oncology
DX: C79.31 Secondary malignant neoplasm of brain (principal)
CPT/HCPCS: 70553; A9575

== ENCOUNTER → 2021-06-05 | Outpatient (CLI) | payer OTHER ==
[~2021-06-05] MED LIST changes: -GADOTERATE 10 MMOL/20 ML VIAL ONE
== END | disposition home or self-care (01) ==
LOC: ROC 07:39
PROVIDERS: ATTEND Radiology Radiation Oncology
DX: C79.31 Secondary malignant neoplasm of brain (principal); C34.32 Malignant neoplasm of lower lobe, left bronchus or lung
CPT/HCPCS: 99213; G0463

== ENCOUNTER 2021-07-12 09:16 | Outpatient (CLI) | payer OTHER ==
[~2021-07-12 09:16] MED LIST changes: +POTA-143 PO; -POTA20TA6 PO; -SCOP1PAT11 TD; +SCOP1PAT13 TD
[2021-07-12] MEDS ORDERED: OMNIPAQUE 350 MG/ML, 100ML BOTTLE ONE (10:00)
== END 2021-07-12 23:59 | disposition home or self-care (01) ==
LOC: CFH 09:16
PROVIDERS: ATTEND Specialist
DX: C34.32 Malignant neoplasm of lower lobe, left bronchus or lung (principal); R91.8 Other nonspecific abnormal finding of lung field; J18.9 Pneumonia, unspecified organism; K57.30 Diverticulosis of large intestine without perforation or abscess without bleeding; N83.292 Other ovarian cyst, left side; D25.9 Leiomyoma of uterus, unspecified; K76.0 Fatty (change of) liver, not elsewhere classified; N28.1 Cyst of kidney, acquired
CPT/HCPCS: 71260; 74177; Q9967

== ENCOUNTER → 2021-08-09 | Outpatient (CLI) | payer OTHER | END | disposition home or self-care (01) | LOC: CFH 09:15 | PROVIDERS: ATTEND Radiology Radiation Oncology | DX: C79.31 Secondary malignant neoplasm of brain (principal); G93.89 Other specified disorders of brain | CPT/HCPCS: 70553; A9575 ==